=== PATIENT | male | born 1990 | race Caucasian/White ===

== ENCOUNTER 2020-08-13 15:06 | Outpatient (CLI) | payer OTHER ==
[2020-08-13 15:49] VITALS: BP 124/78
--- NOTE | 2020-08-13 15:49 | SLEEP CARE CONSULTATION ---
Information from patient questionnaire entered by Debby Zeng. I have reviewed and concur with the information entered by Debby Zeng. This document represents the service I personally performed and the decisions made by me, Jacqueline Gomez ARNP. History of Present Illness Service Date and Time: 08/13/2020 1506 Reason for Visit: New patient Chief Complaint: reports: Unrefreshed sleep, Snoring, Excessive daytime sleepiness, Fatigue, Frequent awakenings at night. denies: Insomnia, Observed pauses in breathing, Other Date of Onset: 2013 Usual bedtime: 2230 Time it takes to fall asleep: 20-30 minutes Snores at night: Yes Observed to quit breathing while asleep: No Sleeps alone due to snoring: No Number of times waking at night: 2-3 Reasons for waking at night: reports: Bathroom, Other (unknown). denies: Choking, Snoring, Gasping for air Toss, Turn, or Twitch while sleeping: Yes Recalls having dreams: No Usually gets out of bed at: 0530 Feels refreshed in the morning: No Morning headache: Yes (3-4 a week, last about 15-20 minutes) Sleepy or fatigued during the day: Yes Ever fallen asleep while driving: No Takes day naps: Yes (1 a week for a couple hours ) Dreams during day naps: No Prior sleep studies: No Additional HPI information: I had the pleasure of seeing MONICA COLON today regarding the possibility of him having a sleep disorder. His current complaints are snoring, frequent night awakenings, unrefreshed sleep, excessive daytime sleepiness and fatigue. 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 He also would like to get a good night's sleep and wake up feeling rested. He has issues with anxiety and depression for which he takes effexor daily. He denies any hypertension, cardiac disease of diabetes. - Parasomnia Symptoms Ever been unable to move upon waking from sleep: No Walks in sleep: No Talks in sleep: Yes (per ) Ever acted out dreams in sleep: Yes (per ) Ever felt weak in the knees when startled or emotional: No Bothered by creepy, crawly, restless sensations in legs: Yes (most days and evenings) Problems with memory or concentration: Yes (concentration and a little bit of short term memory problems) Subjective Initial [place] Sleepiness Scale score: 16 (in 2020) Past Medical History Past Medical History: reports: Anxiety, Depression. denies: Hypertension, Claustrophobia, Congestive Heart Failure, Diabetes, Coronary Heart Disease, Arrythmia, Hypothyroidism, Anemia, Impotence, Mood disorder, GERD, Attention deficit Social History The patient's occupation is a [employer]. Patient is and lives in [place]. Have you smoked in the past 12 months: No Years of smokin Quit date: 2017 Alcohol use: Yes Alcohol amount and frequency: 1-2 drinks rarely; couple times a year Caffeine use: Yes Caffeine amount and frequency: daily, coffee every day Family History Family history of sleep disordered breathing: No Family Hx Sleep Apnea: Mother: Snoring, Father: Snoring Allergies and Home Medications Drug allergies reviewed: Yes (penicillin) Home medication list reviewed: Yes Allergy and home medication list: Effexor 70 mg Review of Systems Review of systems same as previous: Yes Weight gain over past 5 years: 40 Cardiovascular: denies: high blood pressure, palpitations, chest pain, irregular heart rate or pulse, leg or foot swelling, have to sleep sitting up Respiratory: denies: shortness of breath, chronic cough Gastrointestinal: reports: diarrhea. denies: heartburn, difficulty swallowing Urinary: denies: impotence Neurological: reports: headaches. denies: seizure, head trauma, speech dysfunction, gait or balance problems Psychiatric: reports: anxiety. denies: depression, mood disorder, claustrophobia Ear/Nose/Throat: reports: sinus problems (during fall time due to allergies), wisdom teeth removed. denies: nasal congestion, nose bleeds, dry mouth/throat, injury to nose, tonsillectomy Endocrine: reports: sluggishness. denies: thyroid disease Musculoskeletal: reports: joint pain, back pain Immunologic: reports: sneezing, allergies to food or environment Physical Exam Blood Pressure: 124/78 Cuff size: long Heart Rate: 81 O2 Saturation: 97 Height: 6 ft 1 in Weight: 305 lb Body Mass Index: 40.2 BMI Classification: Morbidly Obese Neck circumference: 19 HEENT: No craniofacial malformation Nostrils: patent to airflow Turbinates: swollen Septum: midline Mouth and throat: narrow oropharynx Soft palate: normal Hard palate: arched Uvula: normal Uvula visualization: 50% Mallampati Class II Tongue: enlarged in size with teeth dominguez on lateral edges Tonsils: 2+ Chin and jaw: normal size and position Neck: normal w/o lymphadenopathy or thyromegaly Heart: regular rate and rhythm Lungs: clear bilaterally Impression and Plan 1. Suspected Obstructive Sleep Apnea-Hypopnea Syndrome, as suggested by a history of loud and irregular snoring, morning headache, frequent awakening during the night, unrefreshed sleep, cognitive impairment, and excessive daytime sleepiness. I reviewed with patient that a narrow oropharynx and obesity are common predisposing factors for obstructive sleep apnea-hypopnea syndrome. I recommend proceeding to polysomnography to confirm the diagnosis and to assess severity. If the patient has significant sleep disordered breathing, a manual CPAP titration study will also be performed to find the optimal treatment pressure. I informed the patient of what the sleep studies involve and after some discussion, obtained agreement to proceed. The pathophysiology of obstructive sleep apnea-hypopnea syndrome was discussed with the patient and health risks of cardiovascular and cerebrovascular disease if not treated. AASM brochure for obstructive sleep apnea-hypopnea syndrome given and reviewed. Risks of drowsy driving discussed in detail and patient advised to avoid long distance driving and to crop puller at the first sign of drowsiness. Patient agreed to plan. * Schedule polysomnography +- manual CPAP titration study. * Avoid long distance driving or driving when feeling sleepy. * Avoid alcohol, sedative and muscle relaxant around bedtime. * Attempt to lose weight. * Review instructions provided by trained office staff on how to prepare for the sleep study. * Return for follow-up after sleep study completed. Visit Type: In Office Time Spent with Patient (minutes): 30 Provider Statement: I spent 100% of the Face to Face Visit with the patient with greater than 50% spent counseling the patient and coordination of care.
== END 2020-08-13 15:07 | disposition home or self-care (01) ==
LOC: SC 15:06
PROVIDERS: ATTEND Nurse Practitioner Family
DX: R06.83 Snoring (principal); G47.10 Hypersomnia, unspecified; R53.83 Other fatigue; G47.8 Other sleep disorders; E66.01 Morbid (severe) obesity due to excess calories; Z68.41 Body mass index [BMI] 40.0-44.9, adult; F32.9 Major depressive disorder, single episode, unspecified
CPT/HCPCS: 99204; 99212

== ENCOUNTER 2020-09-13 19:28 | Outpatient (CLI) | payer OTHER | END 2020-09-13 19:29 | disposition home or self-care (01) | LOC: SC 19:28 | PROVIDERS: ATTEND Nurse Practitioner Family | DX: G47.33 Obstructive sleep apnea (adult) (pediatric) (principal); E66.01 Morbid (severe) obesity due to excess calories; Z68.41 Body mass index [BMI] 40.0-44.9, adult; G47.61 Periodic limb movement disorder | CPT/HCPCS: 95810 ==

== ENCOUNTER 2020-09-19 13:31 | Outpatient (CLI) | payer OTHER ==
--- NOTE | 2020-09-19 10:21 | SLEEP CARE CONSULTATION ---
Information from patient questionnaire entered by Debby Zeng. I have reviewed and concur with the information entered by Debby Zeng. This document represents the service I personally performed and the decisions made by , Jacqueline Gomez ARNP. History of Present Illness Service Date and Time: 09/19/2020 1000 Initial [place] Sleepiness Scale score: 16 Additional HPI information: MONICA COLON returns per [facility] Telehealth visit for follow up of results of the recently performed polysomnography. Patient was found to have mild obstructive sleep apnea with an AHI of 6.1 and a evon oxygen saturation of 89%. I explained the pathophysiology behind obstructive sleep apnea. We then spent quite a bit of time discussing different treatment options. For mild obstructive sleep apnea, surgery and oral appliance are alternatives to nasal CPAP therapy but in moderate or severe cases, nasal CPAP is the most effective and reliable treatment. Because apnea is primarily in supine position, then positional management therapy could be effective. Methods discussed such as positioning with pillows, using a T-shirt with tennis balls in the back, and shown commercial products that have a pillow format on back to prevent supine sleep. I reviewed the impact of weight changes on sleep apnea and strongly recommended losing weight. After some discussion, the patient opted to go with the nasal CPAP therapy. Nasal autoCPAP set at 4-15 cmH20 will be ordered with rationale explained. A manual titration study will be ordered if unable to find optimal pressure with office adjustments. I explained how CPAP machine works and what to expect when using the machine. Using CPAP every night in order to get used to it was emphasized. Patient advised to put CPAP mask on before getting into bed so as not to fall asleep without CPAP. To assist acclimation to CPAP use, it could also be used for a short time during day while reading or watching TV. If snoring or perceives is not getting enough air or too much air from the machine, notify this office. AASM patient education PAP tips to be sent to patient. Sleep Study - Results Type of Sleep Study: Polysomnography Year and Where: 08/2020 [facility] Polysomnography/Home Sleep Study results: IMPRESSION: The quality of the study is good. The patient had normal sleep efficiency. The sleep architecture was abnormal for sleep fragmentation and reduced amount of time spent in slow wave sleep (N3). Respiratory monitoring showed mild obstructive sleep apnea-hypopnea (AHI = 6.1) associated with frequent arousals, oxyhemoglobin desaturation and minimal hypoxia (evon oxygen saturation of 89%). The respiratory events occurred almost exclusively during supine sleep (supine AHI = 16.9; non-supine = 1.44). Snore was light in intensity. There was mild periodic leg movement of sleep contributing to the sleep fragmentation. Cardiac rhythm was no Allergies and Home Medications Drug allergies reviewed: Yes (penicillin) Home medication list reviewed: Yes (no changes) Review of Systems Review of systems same as previous: Yes (no changes) Physical Exam Vital signs obtained and entered by: Telehealth visit, no vital signs obtained Height: 6 ft 1 in Impression and Plan 1. Obstructive Sleep Apnea-Hypopnea Syndrome, mild, with lowest oxygen saturation of 89%. Obviously this is the cause of the patients symptoms of unrefreshed sleep, and excessive daytime sleepiness. Positive pressure therapy could benefit anxiety and depression. As mentioned above, the patient will be started on nasal autoCPAP therapy with pressure set at 4-15 cmH2O. Officed staff to call patient with [employer] information for his CPAP machine and supplies. A manual titration study will be completed if unable to find optimal treatment pressure with office adjustments. Compliance guidelines also reviewed. A copy of compliance guidelines will be given for reference at check out. Because the apnea is more severe supine, I instructed to avoid sleeping supine using pillow positioning until able to start CPAP use. Patient requesting a copy of his sleep study and today's chart notes, will have copies sent to patient. * Nasal auto CPAP therapy, pressure at 4-15 cm H2O. * Office staff to call with [employer] information * Office staff to sent pamphlet for AASM Pap tips to patient with copy of sleep study and chart notes for his records. * Avoid alcohol consumption near bedtime. * Avoid supine sleep until using CPAP. * The patient is again cautioned about driving until sleepiness completely resolves. * Return one month after CPAP obtained. I will assess response to therapy and compliance at that time. Counseling Topics: Weight loss health impact Visit Type: Telehealth Video Video Type: Doximity Patient Location: Home Location of Provider: Home Patient agrees and consents to this telehealth visit type: Yes Patient agrees to have their insurance billed: Yes Time Spent with Patient (minutes): 12 Provider Statement: I spent 100% of the Telehealth Video Call with the patient with greater than 50% spent counseling the patient and coordination of care.
== END 2020-09-19 13:32 | disposition home or self-care (01) ==
LOC: SC 13:31
PROVIDERS: ATTEND Nurse Practitioner Family
DX: G47.33 Obstructive sleep apnea (adult) (pediatric) (principal)